=== PATIENT | male | born 1960 | race Caucasian/White ===

== ENCOUNTER 2017-08-11 06:31 | Day surgery (SDC) | payer OTHER ==
[2017-08-11] MEDS ORDERED: MIDAZOLAM 1 MG/ML 2 ML INJ (07:50)
[2017-08-11] MEDS ORDERED: FENTAnyl 50 MCG/ML VIAL (07:50)
[2017-08-11] MEDS ORDERED: PROPOFOL 20 ML (07:51)
[2017-08-11] MEDS ORDERED: CEFAZOLIN 1 GM INJ (07:51)
[2017-08-11] MEDS ORDERED: LIDOCAINE 100 MG SYRINGE (07:51)
[2017-08-11] MEDS ORDERED: METOCLOPRAMIDE 10 MG INJ (07:55)
[2017-08-11] MEDS ORDERED: ONDANSETRON 4 MG INJ (07:55)
[2017-08-11] MEDS ORDERED: DIPHENHYDRAMINE 50 MG INJ IV (08:30)
[2017-08-11] MEDS ORDERED: ONDANSETRON 4 MG INJ IV ×2 (08:30→09:30)
[2017-08-11] MEDS ORDERED: KETOROLAC 15 MG INJ IV (08:30)
[2017-08-11] MEDS ORDERED: METOCLOPRAMIDE 10 MG INJ IV (08:30)
[2017-08-11] MEDS ORDERED: LABETALOL HCL 20MG INJ IV (08:30)
[2017-08-11] MEDS ORDERED: FENTAnyl 50 MCG/ML VIAL IV ×2 (08:30)
[2017-08-11] MEDS ORDERED: hydrALAzine 20 MG INJ IV (08:30)
[2017-08-11] MEDS ORDERED: HYDROmorphONE (0.2 MG/ML) 10ML SYG IV (08:30)
[2017-08-11] MEDS ORDERED: MEPERIDINE 25 MG INJ IV (08:30)
[2017-08-11] MEDS: LIDOCAINE 1% (MPF) 30 ML INJ (09:18)
[2017-08-11] MEDS: BUPIVACAINE 0.25% (MPF) 30 ML INJ (09:18)
[2017-08-11] MEDS ORDERED: OXYCODONE/ACETAMINOPHEN (5/325) TAB PO ×2 (09:30)
[2017-08-11] MEDS ORDERED: morphine 2 MG INJ IV (09:30)
== END 2017-08-11 10:48 | disposition home or self-care (01) ==
LOC: SDS 06:31
DX: D17.1 Benign lipomatous neoplasm of skin and subcutaneous tissue of trunk (principal); E11.9 Type 2 diabetes mellitus without complications
CPT/HCPCS: 11406; 82962; 88304